=== PATIENT | female | born 1985 | race Caucasian/White ===

== ENCOUNTER 2017-04-19 08:27 | Emergency (ER) | payer OTHER ==
[~2017-04-19] VITALS: Ht 160 cm; Wt 50.8 kg
[~2017-04-19 08:27] MED LIST: ACETAMINOPHEN325 M1; ADVAIR HFA 1112 UNIT IH; ADVAIR HFA 230M1 AER; ALBUTEROL; ALBUTEROL INH; ALBUTEROL INH INH; ALBUTEROL INHAL17 GM IH; ALBUTEROL MDI; ALBUTEROL2.5 MG/0.1 IH; ALBUTEROL2.5 MG/0.5 IH; ALBUTEROL2.5 MG/0.5 INH; ALBUTEROL2.5 MG/31 IH; ALBUTEROL2.5 MG/31 INH; ALBUTEROL2.5 MG/32 IH; AMOXICILLIN875 MG PO; AVELOX 400 MG400 MG PO; AZITHROMYCIN 2250 MG PO; AZITHROMYCIN PO; CHEMO; CIPROFLOXACIN500 M1 PO; CLEOCIN HCL300 MG PO; COMBIVENT INH; COMPAZINE10 MG PO; DARVOCET-N 1001 EACH PO; DOXYCYCLINE 10100 MG PO; DUONEB 2.5-0.5 M3 ML IH; FLAGYL500 MG PO; GUAIFENESIN/COD10 M1 PO; HYDROXYZINE HCL25 M2 PO; IBUPROFEN 800800 MG PO; INDOMETHACIN 2525 MG PO; KEFLEX500 MG PO; LEVAQUIN 500 M500 M3 PO; LIORESAL 10 MG10 MG PO; MACROBID 100 M100 M1 PO; MEDROLDOSEPACK PO; MIRALAX255 GM PO; NAPROSYN500 MG PO; NOHOMEMEDICATIONS; NORCO 5-325 TA1 EACH PO; NORCO 7.5-3251 EACH PO; ONDANSETRON HCL4 M2 PO; PENICILLIN V P500 MG PO; PERCOCET 5-3251 EACH; PERCOCET 5-3251 EACH PO; PHENERGAN 25 MG25 M1 PO; PHENERGAN 25 MG25 MG PO; PHENERGAN25 MG RE; PHENERGAN50 MG RC; POTASSIUM20 PO; PREDNISONE 10 M10 M1 PO; PREDNISONE 20 M20 M1 PO; PREDNISONE 20 M20 MG PO; PREDNISONE 5 MG5 M1 PO; PREDNISONE PO; PREDNISONE50 MG PO; PRENATAL; PRENATAL COMPL1 EACH PO; PROAIR HFA8.5 GM IH; PROTONIX40 MG PO; PROVENTIL HFA6.7 G1 INH; PROVENTIL INH; STEROID; TAMIFLU PO; TESSALON PERLE100 MG PO; TRINATE TABLET1 TAB PO; ULTRAM 50MG TAB50 MG PO; VALIUM5 MG PO; VENTOLIN HFA 1818 GM INH; VENTOLIN HFA INH8 GM IH; VENTOLIN17 GM; VENTOLIN17 GM INH; VICODIN 5-5001 EACH PO; VITAFOL-OB+DHA1 EACH PO; ZOFRAN 4 MG ORAL4 M1 DIS; ZOFRAN ODT4 MG PO; ZOFRAN4 MG PO; ZOFRAN8 MG PO; ZPAK PO; [UNRECOGNIZED DRUG - OTHER]; [UNRECOGNIZED DRUG - OTHER]
[2017-04-19 10:35] VITALS: BP 119/60
== END 2017-04-19 11:04 | disposition home or self-care (01) ==
LOC: ER 08:27
DX: L50.9 Urticaria, unspecified (principal); J45.909 Unspecified asthma, uncomplicated; Z85.3 Personal history of malignant neoplasm of breast; Z90.13 Acquired absence of bilateral breasts and nipples; Z96.89 Presence of other specified functional implants

== ENCOUNTER 2017-10-20 09:57 | Emergency (ER) | payer OTHER ==
[~2017-10-20] VITALS: Ht 160 cm; Wt 54.4 kg
[~2017-10-20 09:57] MED LIST changes: +ACCUNEB SO1.25 MG/1 INH; +NOLVADEX 10MG T10 M1 PO
[2017-10-20] MEDS ORDERED: ALBUTEROL2.5 MG/31 INH (10:18)
[2017-10-20] MEDS ORDERED: VENTOLIN HFA 1818 GM INH (10:18)
== END 2017-10-20 10:28 | disposition home or self-care (01) ==
LOC: ER 09:57
DX: J45.40 Moderate persistent asthma, uncomplicated (principal); Z90.13 Acquired absence of bilateral breasts and nipples

== ENCOUNTER 2017-10-23 01:19 | Emergency (ER) | payer OTHER ==
[~2017-10-23] VITALS: Ht 160 cm; Wt 54.4 kg
--- NOTE | ~2017-10-23 | EKG ---
[place] [address] [facility] [place] [address] ELECTROCARDIOGRAM REPORT Name: ANNETTE BROWN [facility] [id number] Admission: 10/23/17 Attend Phys: Discharge: 10/23/17 Date of : 87 Report #: [id number] THIS REPORT FOR: //name// [facility] ED Test Date: 2017-10-23 Test Time: 01:33:16 Pat Name: ANNETTE BROWN Department: Room: Gender: F [employer]: TAISHA : 1985 Requested By: Ofelia Tubbs Order Number: [id number] MD: Bud Velasquez Measurements Intervals [place] Rate: 97 P: 56 AR: 130 QRS: 63 QRSD: 95 T: -3 QT: 343 QTc: 436 Interpretive Statements Sinus rhythm Borderline T abnormalities, inferior leads Compared to ECG 08/01/2017 16:32:59 No significant changes Electronically Signed On 10-24-2017 10:07:57 GUEST ADVISOR by Bud Velasquez [email or web address] <ELECTRONICALLY SIGNED> By: Bud Velasquez MD 10/24/17 1007 [id number] Bud Velasquez MD /FRITZ
[2017-10-23] MEDS ORDERED: PREDNISONE50 MG PO (03:03)
[2017-10-23] MEDS ORDERED: ALBUTEROL2.5 MG/31 INH (03:04)
== END 2017-10-23 03:26 | disposition home or self-care (01) ==
LOC: ER 01:19
DX: J45.901 Unspecified asthma with (acute) exacerbation (principal)

== ENCOUNTER 2018-08-31 16:13 | Emergency (ER) | payer OTHER ==
[~2018-08-31] VITALS: Ht 160 cm; Wt 54.4 kg
[2018-08-31 16:41] LABS: URINE BILIRUBIN NEGATIVE (Negative); URINE BLOOD NEGATIVE (Negative); URINE CLARITY SL HAZY; URINE COLOR YELLOW; URINE GLUCOSE-RANDOM* NEGATIVE (Negative); URINE KETONES NEGATIVE (Negative); URINE LEUKOCYTES-REFLEX 1+ (Negative); URINE NITRITE-REFLEX NEGATIVE (Negative); URINE PROTEIN (DIPSTICK) NEGATIVE (Negative); URINE SPECIFIC GRAVITY > 1.030 (1.005-1.035); URINE UROBILINOGEN 0.2 E.U./dl (0.2-1.0)
[2018-08-31 16:52] LABS: AMORPHOUS URATES Moderate /LPF (None Seen); BACTERIA-REFLEX None Seen /HPF (None Seen); CASTS None Seen /LPF (None Seen); MUCUS >6 Heavy strn/LPF (None Seen); SQUAMOUS 4-10 Moderate /LPF (0-3); URINE RBC 0-2 Rare /HPF (0-2)
[2018-08-31] MEDS ORDERED: KEFLEX500 M1 PO (17:03)
[2018-08-31] MEDS ORDERED: TRAMADOL 50 MG50 MG PO (17:03)
[2018-08-31 17:12] VITALS: BP 104/67
== END 2018-08-31 17:12 | disposition home or self-care (01) ==
LOC: ER 16:13
PROVIDERS: Physician Assistant
DX: N39.0 Urinary tract infection, site not specified (principal); M54.5 Low back pain; J45.909 Unspecified asthma, uncomplicated; Z90.13 Acquired absence of bilateral breasts and nipples; Z85.3 Personal history of malignant neoplasm of breast; Y04.2XXA Assault by strike against or bumped into by another person, initial encounter; Y92.89 Other specified places as the place of occurrence of the external cause; Y93.89 Activity, other specified; Y99.8 Other external cause status

== ENCOUNTER 2019-09-09 13:46 | Emergency (ER) | payer OTHER ==
[~2019-09-09] VITALS: Ht 160 cm; Wt 52.2 kg
[~2019-09-09 13:46] MED LIST changes: +KEFLEX500 M1 PO; +TRAMADOL 50 MG50 MG PO
[2019-09-09 13:47] VITALS: BP 110/66
[2019-09-09 14:08] LABS: URINE BILIRUBIN NEGATIVE (Negative); URINE BLOOD NEGATIVE (Negative); URINE CLARITY SL CLOUDY; URINE COLOR YELLOW; URINE GLUCOSE-RANDOM* NEGATIVE (Negative); URINE KETONES NEGATIVE (Negative); URINE LEUKOCYTES-REFLEX 1+ (Negative); URINE NITRITE-REFLEX NEGATIVE (Negative); URINE PROTEIN (DIPSTICK) NEGATIVE (Negative); URINE SPECIFIC GRAVITY >= 1.030 (1.005-1.035); URINE UROBILINOGEN 0.2 E.U./dl (0.2-1.0)
[2019-09-09 14:18] LABS: SQUAMOUS >10 Many /LPF (0-3)
[2019-09-09 14:19] LABS: CASTS None Seen /LPF (None Seen); CRYSTALS None Seen /LPF (None Seen); URINE RBC 0-2 Rare /HPF (0-2)
[2019-09-09] MEDS ORDERED: DOXYCYCLINE 10100 MG PO (14:36)
[2019-09-09] MEDS ORDERED: METRONIDAZOLE500 M4 PO (14:36)
== END 2019-09-09 14:46 | disposition home or self-care (01) ==
LOC: ER 13:46
DX: N39.0 Urinary tract infection, site not specified (principal); J45.909 Unspecified asthma, uncomplicated; Z85.3 Personal history of malignant neoplasm of breast; Z90.13 Acquired absence of bilateral breasts and nipples; Z98.82 Breast implant status

== ENCOUNTER 2020-01-28 20:14 | Emergency (ER) | payer OTHER ==
[~2020-01-28] VITALS: Ht 160 cm; Wt 53.5 kg
[~2020-01-28 20:14] MED LIST changes: +METRONIDAZOLE500 M4 PO
[2020-01-28 20:21] VITALS: BP 108/72
[2020-01-28] MEDS ORDERED: PROAIR HFA8.5 GM (20:24)
[2020-01-28] MEDS ORDERED: VENTOLIN HFA 1818 GM INH (20:41)
[2020-01-28] MEDS ORDERED: PREDNISONE 20 M20 MG PO (20:41)
== END 2020-01-28 21:16 | disposition home or self-care (01) ==
LOC: ER 20:14
DX: J45.901 Unspecified asthma with (acute) exacerbation (principal); Z76.0 Encounter for issue of repeat prescription; Z85.3 Personal history of malignant neoplasm of breast; Z90.89 Acquired absence of other organs

== ENCOUNTER 2020-04-28 18:33 | Emergency (ER) | payer OTHER ==
[~2020-04-28] VITALS: Ht 160 cm; Wt 54.4 kg
[~2020-04-28 18:33] MED LIST changes: +PROAIR HFA8.5 GM
[2020-04-28] MEDS ORDERED: MOBIC7.5 MG PO (21:04)
[2020-04-28] MEDS ORDERED: CYCLOBENZAPRINE5 MG PO (21:04)
[2020-04-28 21:13] VITALS: BP 118/68
== END 2020-04-28 21:13 | disposition home or self-care (01) ==
LOC: ER 18:33
DX: S16.1XXA Strain of muscle, fascia and tendon at neck level, initial encounter (principal); S39.012A Strain of muscle, fascia and tendon of lower back, initial encounter; S29.012A Strain of muscle and tendon of back wall of thorax, initial encounter; J45.909 Unspecified asthma, uncomplicated; Z79.899 Other long term (current) drug therapy; V49.59XA Passenger injured in collision with other motor vehicles in traffic accident, initial encounter; Y93.89 Activity, other specified; Y92.410 Unspecified street and highway as the place of occurrence of the external cause; Y99.8 Other external cause status

== ENCOUNTER 2020-12-31 17:51 | Emergency (ER) | payer OTHER ==
[~2020-12-31] VITALS: Ht 160 cm; Wt 49.9 kg
[~2020-12-31 17:51] MED LIST changes: +CYCLOBENZAPRINE5 MG PO; +MOBIC7.5 MG PO
[2020-12-31 19:00] VITALS: BP 127/86
[2020-12-31] MEDS ORDERED: PERCOCET 5-3251 EACH PO (19:06)
== END 2020-12-31 19:33 | disposition home or self-care (01) ==
LOC: ER 17:51
DX: K05.319 Chronic periodontitis, localized, unspecified severity (principal); J45.909 Unspecified asthma, uncomplicated; Z79.899 Other long term (current) drug therapy